=== PATIENT | female | born 1995 | race Caucasian/White ===

== ENCOUNTER 2022-12-24 08:25 | Inpatient (IN) | payer OTHER ==
[~2022-12-24] VITALS: Ht 160 cm; Wt 83.2 kg
[2022-12-24] VITALS (18 sets, daily range): BP systolic 109–148; BP diastolic 62–97; PULSE 60–105; TEMP 98.2–98.7
[~2022-12-24 08:25] MED LIST: PRENATAL TABLET PO
[2022-12-24 11:01] LABS: BASO % 0.2 % (0.0-2.0); EOS % 0.1 % (0.0-4.0); GRAN # 7.9 K/mm3 (1.4-6.5); GRAN % 78.4 % (42.2-75.2); HEMATOCRIT 39.4 % (37.0-47.0); HEMOGLOBIN 13.5 g/dl (12.5-16.0); LYMPH # 1.5 K/mm3 (1.2-3.4); LYMPH % 15.4 % (20.0-51.0); MEAN CELL VOLUME 95 fl (80.0-100.0); MEAN CORPUSCULAR HEMOGLOBIN 33 pg (27-31); MEAN CORPUSCULAR HGB CONC 34 g/dl (33.0-37.0); MEAN PLATELET VOLUME 11.9 fl (7.4-10.4); MONO # 0.6 K/mm3 (0.1-0.6); MONO % 5.5 % (1.7-9.3); PLATELET COUNT 201 K/mm3 (130-400); RED BLOOD COUNT 4.16 M/mm3 (4.10-5.30); REDCELL DISTRIBUTION WIDTH-CV 12.5 % (11.5-14.5)
[2022-12-25 02:40] VITALS: BP 133/77; PULSE 77; TEMP 98
[2022-12-25 10:45] VITALS: BP 134/82; PULSE 72; TEMP 97.7
[2022-12-25] MEDS ORDERED: MOTRIN 800800 MG/TAB PO (11:42)
[2022-12-25] MEDS ORDERED: PERCOCET 325 MG1 TA2 PO (11:42)
[2022-12-25 17:05] VITALS: BP 132/83; PULSE 72; TEMP 97.8
[2022-12-25 21:00] VITALS: BP 120/72; PULSE 78; TEMP 98.1
[2022-12-26 06:45] VITALS: BP 122/79; PULSE 72; TEMP 98.2
--- NOTE | 2022-12-26 06:45 | NUR ---
Rests in bed, alert. Denies wanting anything for pain. Dr. Peña in to see patient before.
--- NOTE | 2022-12-26 11:37 | NUR ---
Ibuprofen 800 mg given as ordered. baby.
== END 2022-12-26 11:45 | disposition home or self-care (01) | DRG 788 ==
LOC: OB 08:25
PROVIDERS: ADMIT Obstetrics & Gynecology
PROC: 10D00Z1 Extraction of Products of Conception, Low, Open Approach (ICD-10-PCS; principal; 2022-12-24)
DX: O33.0 Maternal care for disproportion due to deformity of maternal pelvic bones (principal); O48.0 Post-term pregnancy; O36.63X0 Maternal care for excessive fetal growth, third trimester, not applicable or unspecified; Z3A.40 40 weeks gestation of pregnancy; Z37.0 Single live birth; Z86.16 Personal history of COVID-19; Z90.49 Acquired absence of other specified parts of digestive tract; Z88.8 Allergy status to other drugs, medicaments and biological substances
CPT/HCPCS: J0690; J1100; J1885; J2370; J2405; J2590; J2765; J7120